=== PATIENT | male | born 2000 | race Two or more races ===

== ENCOUNTER 2019-10-03 22:57 | Emergency (ER) | payer MEDICAID ==
[~2019-10-03] VITALS: Ht 185.4 cm; Wt 81.6 kg
[2019-10-04 03:28] VITALS: BP 144/82
[2019-10-04] MEDS ORDERED: methylPREDNISolone SOD SUCC 125 MG/2 ML VL IM ONE (03:45)
[2019-10-04] MEDS ORDERED: EPINEPHrine HCL 1 MG/1 ML AMP SC ONE (03:45)
== END 2019-10-04 04:20 | disposition home or self-care (01) ==
LOC: ER 22:57
DX: T78.40XA Allergy, unspecified, initial encounter (principal); L25.9 Unspecified contact dermatitis, unspecified cause
CPT/HCPCS: 96372; 99283; J0171; J2930